=== PATIENT | female | born 1945 | race Asian ===

== ENCOUNTER 2020-08-19 11:37 | Observation (INO) ==
[2020-08-19] MEDS ORDERED: 0.9 % Sodium Chloride 1,000 ML IVC ONE (12:20)
[2020-08-19 12:28] LABS: Basophils # 0.1 K/mcL (0.0-0.2); Basophils % 0.7 %; Eosinophils # 0.1 K/mcL (0.0-0.6); Hematocrit 36.9 % (35.3-44.9); Hemoglobin 11.8 g/dL (11.5-15.4); Immature Granulocytes % 0.3 % (0-4); Lymphocytes # 1.6 K/mcL (0.6-4.6); Lymphocytes % 23.9 %; Mean Corpuscular Hemoglobin 30.3 pg (28.0-33.3); Mean Corpuscular Volume 94.9 fL (83.0-100.0); Mean Platelet Volume 8.5 fL (9.4-12.4); Monocytes # 0.5 K/mcL (0.0-1.3); Monocytes % 6.6 %; Neutrophils # 4.6 K/mcL (1.6-8.9); Platelet Count 325 K/mcL (140-400); Red Blood Count 3.89 M/mcL (3.82-4.97); Red Cell Distribution Width 12.5 % (11.5-14.5); Segmented Neutrophils % 67.5 %; White Blood Count 6.8 K/mcL (4.3-11.1)
[2020-08-19 12:49] LABS: BUN/Creatinine Ratio 20 (6-26); Blood Urea Nitrogen 11 mg/dL (8-23); Calcium 9.4 mg/dL (8.6-10.3); Carbon Dioxide 24 mEq/L (23-29); Chloride 106 mEq/L (98-107); Glucose 193 mg/dL (70-105); Osmolality,Calculated 285 (280-300); Sodium 135 mEq/L (136-145); Troponin I < 0.03 ng/mL (< 0.04); eGFR For African Americans > 60 (> 60); eGFR For Non-African Americans > 60 (> 60)
[2020-08-19] MEDS ORDERED: Isovue-370 500 ML BOTTLE IVP ONE (13:05)
[2020-08-19] MEDS ORDERED: DilTIAZem 125 MG in D5% in Water 100 ML IVC SCH (16:00)
[2020-08-19] MEDS ORDERED: Naloxone 0.4 MG/ML INJ IVP PRN (16:56)
[2020-08-19] MEDS ORDERED: Acetaminophen 325 MG TABLET PO PRN (16:56)
[2020-08-19] MEDS ORDERED: Perflutren Lipid Microsphere 1.3 ML in 0.9 % Sodium Chloride 8.7 ML IVP PRN (16:58)
[2020-08-19] MEDS ORDERED: DilTIAZem 50 MG/50 ML IV.SOLN IVC SCH (17:00)
[2020-08-20 05:18] LABS: Basophils % 0.6 %; Eosinophils # 0.3 K/mcL (0.0-0.6); Eosinophils % 3.7 %; Hematocrit 35.4 % (35.3-44.9); Hemoglobin 11.5 g/dL (11.5-15.4); Immature Granulocytes % 0.1 % (0-4); Lymphocytes # 2.6 K/mcL (0.6-4.6); Mean Corpuscular HGB Conc 32.5 g/dL (31.6-35.5); Mean Corpuscular Hemoglobin 30.7 pg (28.0-33.3); Mean Corpuscular Volume 94.7 fL (83.0-100.0); Mean Platelet Volume 8.9 fL (9.4-12.4); Monocytes # 0.6 K/mcL (0.0-1.3); Monocytes % 8.4 %; Neutrophils # 3.2 K/mcL (1.6-8.9); Platelet Count 297 K/mcL (140-400); Red Blood Count 3.74 M/mcL (3.82-4.97); Red Cell Distribution Width 12.8 % (11.5-14.5); Segmented Neutrophils % 48.2 %; White Blood Count 6.7 K/mcL (4.3-11.1)
[2020-08-20 05:42] LABS: BUN/Creatinine Ratio 15 (6-26); Blood Urea Nitrogen 9 mg/dL (8-23); Calcium 9.1 mg/dL (8.6-10.3); Carbon Dioxide 24 mEq/L (23-29); Chloride 108 mEq/L (98-107); Chol/HDL Ratio 2.9 (0-4.9); Cholesterol 168 mg/dL (< 200); Glucose 107 mg/dL (70-105); HDL Cholesterol 58 mg/dL (40-59); LDL Cholesterol,Calculated 86 mg/dL (< 100); Magnesium 2.3 mg/dL (1.6-2.6); Osmolality,Calculated 285 (280-300); Potassium 3.7 mEq/L (3.5-5.1); Sodium 138 mEq/L (136-145); Triglycerides 120 mg/dL (< 150); Troponin I < 0.03 ng/mL (< 0.04); eGFR For African Americans > 60 (> 60); eGFR For Non-African Americans > 60 (> 60)
[2020-08-20 05:53] LABS: Thyroid Stimulating Hormone < 0.010 mcIU/mL (0.340-5.600)
[2020-08-20] MEDS: Aspirin Enteric Coated 81 MG Tablet PO SCH (09:54)
[2020-08-20] MEDS ORDERED: DilTIAZem CD (24hr) 120 MG CAP.ER.24H PO SCH (10:45)
[2020-08-20 12:15] LABS: Estimated Average Glucose 128 mg/dl; Hemoglobin A1C 6.1 %
[2020-08-20] MEDS: methIMAzole 5 MG TABLET PO SCH (13:00)
[2020-08-20] MEDS: Doxycycline 100 MG CAPSULE PO SCH ×2 (13:00→19:57)
[2020-08-20] MEDS: *HR* Heparin 5,000 UNIT/ML VIAL SQ SCH (17:15)
[2020-08-20 17:51] LABS: Triiodothyronine (T3) Free 3.98 pg/mL (2.50-3.90)
[2020-08-20 17:55] LABS: Triiodothyronine (T3) Total 1.24 ng/mL (0.87-1.78)
[2020-08-21] MEDS ORDERED: Ondansetron 4 MG/2 ML VIAL IVP ONE (03:39)
[2020-08-21] MEDS ORDERED: Ondansetron 4 MG/2 ML VIAL ONE (03:40)
[2020-08-21] MEDS: *HR* Heparin 5,000 UNIT/ML VIAL SQ SCH (05:34)
[2020-08-21 07:13] VITALS: BP 144/73
[2020-08-21] MEDS ORDERED: Metoprolol XL (24 HR) Succ 25 MG TAB.ER.24H PO SCH ×2 (09:00→10:15)
[2020-08-21] MEDS: Doxycycline 100 MG CAPSULE PO SCH (10:06)
[2020-08-21] MEDS: Aspirin Enteric Coated 81 MG Tablet PO SCH (10:06)
[2020-08-21] MEDS: methIMAzole 5 MG TABLET PO SCH (10:07)
[2020-08-23 08:23] LABS: Thyroglobulin Antibody <0.9 IU/mL (0.0-4.0)
== END 2020-08-21 12:20 | disposition home or self-care (01) ==
LOC: EMEROOARM 11:37 → 2ANU 11:37 → SUATTDRO 16:41 → 2ANU 19:39
PROVIDERS: ADMIT Internal Medicine; ATTEND Internal Medicine

== ENCOUNTER 2021-01-20 06:10 | Inpatient (IN) ==
[2021-01-20] MEDS ORDERED: Clindamycin 900 MG/50 ML 900 MG/50 ML IV.SOLN IVPB ONE (06:36)
[2021-01-20] MEDS ORDERED: Albuterol 2.5 MG/3 ML NEBULIZER IH PRN (06:36)
[2021-01-20] MEDS ORDERED: Acetaminophen IV 1,000 MG/100 ML BAG IVPB ONE (06:37)
[2021-01-20] MEDS ORDERED: Ringers Solution, Lactated 1,000 ML IVC SCH (06:45)
[2021-01-20] MEDS ORDERED: *HR* Propofol 200 MG/20 ML VIAL IVP ONE (06:52)
[2021-01-20] MEDS ORDERED: *HR* Succinylcholine 200 MG/10 ML VIAL IVP ONE (06:53)
[2021-01-20] MEDS ORDERED: *HR* Rocuronium Bromide 50 MG/5 ML VIAL ONE (06:53)
[2021-01-20] MEDS ORDERED: Sugammadex Sodium 200 MG/2 ML VIAL IV ONE (06:53)
[2021-01-20] MEDS ORDERED: *HR* FentaNYL (PF) 100 MCG/2 ML VIAL ONE (06:53)
[2021-01-20] MEDS ORDERED: Ondansetron 4 MG/2 ML VIAL ONE (06:53)
[2021-01-20] MEDS ORDERED: Lidocaine HCL 4 ML Topical Solution (Laryng-O-Jet Kit Sterile Pak) TP ONE (06:53)
[2021-01-20] MEDS ORDERED: Lidocaine -MPF 2% 5 ML VIAL ONE (06:53)
[2021-01-20] MEDS ORDERED: *HR* Remifentanil 1 MG VIAL IVP ONE (07:09)
[2021-01-20] MEDS ORDERED: Ketorolac 30 MG/ML VIAL ONE (08:48)
[2021-01-20] MEDS: *HR* FentaNYL (PF) 100 MCG/2 ML VIAL IVP PRN ×2 (09:46→09:56)
[2021-01-20] MEDS ORDERED: Naloxone 0.4 MG/ML INJ IVP PRN (10:40)
[2021-01-20] MEDS: 0.9 % Sodium Chloride 1,000 ML IVC SCH ×2 (11:43→23:59)
[2021-01-20] MEDS: Ketorolac 15 MG/ML VIAL IVP SCH ×3 (11:47→23:59)
[2021-01-20] MEDS: Ipratropium/Albuterol Neb 3 ML IH SCH ×4 (11:57→23:23)
[2021-01-20] MEDS: Gabapentin 300 MG CAPSULE PO SCH ×2 (13:51→19:43)
[2021-01-20] MEDS: *HR* Heparin 5,000 UNIT/ML VIAL SQ SCH ×2 (13:51→19:43)
[2021-01-20] MEDS: *HR* HYDROcodone/Acet 5/325 mg TABLET PO PRN ×2 (16:07→21:10)
[2021-01-20] MEDS: Ondansetron 4 MG/2 ML VIAL IVP PRN (18:00)
[2021-01-20] MEDS: Sennosides/Docusate Sodium TABLET PO SCH (19:43)
[2021-01-20] MEDS ORDERED: NON-FORMULARY MEDICATION 1 EACH EACH (Losartan Potassium [Cozaar] 100 MG Tablet) PO SCH (21:00)
[2021-01-21 00:48] LABS: Hematocrit 30.7 % (35.3-44.9); Hemoglobin 10.3 g/dL (11.5-15.4); Mean Corpuscular HGB Conc 33.6 g/dL (31.6-35.5); Mean Corpuscular Hemoglobin 32.8 pg (28.0-33.3); Mean Corpuscular Volume 97.8 fL (83.0-100.0); Mean Platelet Volume 8.8 fL (9.4-12.4); Platelet Count 303 K/mcL (140-400); Red Blood Count 3.14 M/mcL (3.82-4.97); Red Cell Distribution Width 12.4 % (11.5-14.5); White Blood Count 12.3 K/mcL (4.3-11.1)
[2021-01-21 01:07] LABS: BUN/Creatinine Ratio 22 (6-26); Blood Urea Nitrogen 16 mg/dL (8-23); Calcium 8.6 mg/dL (8.6-10.3); Carbon Dioxide 22 mEq/L (23-29); Chloride 105 mEq/L (98-107); Glucose 157 mg/dL (70-105); Osmolality,Calculated 286 (280-300); Potassium 4.1 mEq/L (3.5-5.1); Sodium 136 mEq/L (136-145); eGFR For African Americans > 60 (> 60); eGFR For Non-African Americans > 60 (> 60)
[2021-01-21] MEDS: Ipratropium/Albuterol Neb 3 ML IH SCH ×6 (03:26→23:23)
[2021-01-21] MEDS: Ketorolac 15 MG/ML VIAL IVP SCH ×4 (06:11→23:35)
[2021-01-21] MEDS: *HR* Heparin 5,000 UNIT/ML VIAL SQ SCH ×3 (06:12→20:41)
[2021-01-21] MEDS: Aspirin Enteric Coated 81 MG Tablet PO SCH (09:18)
[2021-01-21] MEDS: Metoprolol XL (24 HR) Succ 25 MG TAB.ER.24H PO SCH (09:18)
[2021-01-21] MEDS: Sennosides/Docusate Sodium TABLET PO SCH ×2 (09:20→20:41)
[2021-01-21] MEDS: Gabapentin 300 MG CAPSULE PO SCH ×3 (09:20→20:41)
[2021-01-21] MEDS: Loratadine 10 MG TABLET PO SCH (09:21)
[2021-01-21] MEDS: Famotidine 20 MG TABLET PO SCH (09:21)
[2021-01-21] MEDS: Ondansetron 4 MG/2 ML VIAL IVP PRN (09:22)
[2021-01-21] MEDS: *HR* HYDROcodone/Acet 5/325 mg TABLET PO PRN ×2 (16:08→20:41)
[2021-01-22] MEDS: Ipratropium/Albuterol Neb 3 ML IH SCH ×5 (03:51→19:57)
[2021-01-22] MEDS: Ketorolac 15 MG/ML VIAL IVP SCH ×3 (05:48→17:21)
[2021-01-22] MEDS: *HR* Heparin 5,000 UNIT/ML VIAL SQ SCH ×3 (05:48→20:41)
[2021-01-22] MEDS: Gabapentin 300 MG CAPSULE PO SCH ×3 (07:39→20:41)
[2021-01-22] MEDS: Sennosides/Docusate Sodium TABLET PO SCH ×2 (07:39→20:41)
[2021-01-22] MEDS: Metoprolol XL (24 HR) Succ 25 MG TAB.ER.24H PO SCH (07:39)
[2021-01-22] MEDS: Aspirin Enteric Coated 81 MG Tablet PO SCH (07:39)
[2021-01-22] MEDS: Loratadine 10 MG TABLET PO SCH (07:40)
[2021-01-22] MEDS: Famotidine 20 MG TABLET PO SCH (07:40)
[2021-01-22] MEDS: Ondansetron 4 MG/2 ML VIAL IVP PRN (10:03)
[2021-01-23] MEDS: Ipratropium/Albuterol Neb 3 ML IH SCH ×7 (00:27→23:44)
[2021-01-23] MEDS: Ketorolac 15 MG/ML VIAL IVP SCH ×4 (00:37→16:32)
[2021-01-23] MEDS: *HR* Heparin 5,000 UNIT/ML VIAL SQ SCH ×3 (06:28→20:23)
[2021-01-23] MEDS: Sennosides/Docusate Sodium TABLET PO SCH ×2 (07:49→20:24)
[2021-01-23] MEDS: Aspirin Enteric Coated 81 MG Tablet PO SCH (07:58)
[2021-01-23] MEDS: Metoprolol XL (24 HR) Succ 25 MG TAB.ER.24H PO SCH (07:58)
[2021-01-23] MEDS: Gabapentin 300 MG CAPSULE PO SCH ×3 (07:59→20:22)
[2021-01-23] MEDS: Loratadine 10 MG TABLET PO SCH (07:59)
[2021-01-23] MEDS: Famotidine 20 MG TABLET PO SCH (07:59)
[2021-01-23] MEDS: *HR* HYDROcodone/Acet 5/325 mg TABLET PO PRN (20:22)
[2021-01-24] MEDS: Ketorolac 15 MG/ML VIAL IVP SCH ×2 (00:23→06:14)
[2021-01-24] MEDS: Ipratropium/Albuterol Neb 3 ML IH SCH ×3 (03:50→11:09)
[2021-01-24] MEDS: *HR* Heparin 5,000 UNIT/ML VIAL SQ SCH (06:15)
[2021-01-24 06:30] VITALS: O2SAT 96
[2021-01-24] MEDS: Sennosides/Docusate Sodium TABLET PO SCH (08:04)
[2021-01-24] MEDS: Gabapentin 300 MG CAPSULE PO SCH (08:05)
[2021-01-24] MEDS: Famotidine 20 MG TABLET PO SCH (08:05)
[2021-01-24] MEDS: Loratadine 10 MG TABLET PO SCH (08:05)
[2021-01-24] MEDS: Metoprolol XL (24 HR) Succ 25 MG TAB.ER.24H PO SCH (08:05)
[2021-01-24] MEDS: Aspirin Enteric Coated 81 MG Tablet PO SCH (08:05)
[2021-01-24 10:46] VITALS: BP 135/66; PULSE 84; TEMP 97.9
== END 2021-01-24 12:46 | disposition home or self-care (01) | DRG 165 ==
LOC: SAMDAY 06:10 → 2NNU 11:38
PROVIDERS: ADMIT Thoracic Surgery (Cardiothoracic Vascular Surgery); ATTEND Thoracic Surgery (Cardiothoracic Vascular Surgery)